=== PATIENT | female | born 1940 | race Hispanic/Latino ===

== ENCOUNTER 2017-12-02 18:17 | Observation (INO) | payer MEDICARE, OTHER ==
[~2017-12-02] VITALS: Ht 152.4 cm; Wt 78.7 kg
[2017-12-02 19:19] LABS: HEMATOCRIT 28.3 % (36-48); MEAN CORPUSCULAR HEMOGLOBIN 41.3 pg (27.0-33.0); MEAN CORPUSCULAR HGB CONC 35.6 g/dL (32.0-36.0); MEAN CORPUSCULAR VOLUME 116.3 fL (79-99); NUCLEATED RED BLOOD CELLS 0.2 % (0.0-0.19); PLATELET COUNT (AUTO) 177 K/uL (130-400); RED BLOOD CELL COUNT(AUTO) 2.43 MIL/uL (4.00-5.50); RED CELL DISTRIBUTION WIDTH 17.4 % (11.0-15.5); WHITE BLOOD COUNT (AUTO) 2.7 K/uL (4.8-10.8)
[2017-12-02 19:30] LABS: CREATININE 2.4 mg/dL (0.5-1.5); POTASSIUM 4.9 mmol/L (3.5-5.1)
[2017-12-02 19:44] LABS: ALBUMIN 2.7 g/dL (3.5-5.0); BILIRUBIN,TOTAL 0.8 mg/dL (0.2-1.0); CREATINE KINASE MB 0.7 ng/mL (0.5-3.6); TOTAL PROTEIN, SERUM 6.3 g/dL (6.0-8.3)
[2017-12-02 20:07] LABS: BILIRUBIN,URINE Negative (NEGATIVE); COLOR,URINE Dark Yellow (YELLOW); GLUCOSE, URINE (UA) Negative (NEGATIVE); KETONES,URINE Trace mg/dL (NEGATIVE); LEUKOCYTE ESTERASE ,URINE Small (NEGATIVE); NITRATE,URINE Negative (NEGATIVE); OCCULT BLOOD,URINE Negative (NEGATIVE); PROTEIN,URINE Negative (NEGATIVE); UROBILINOGEN,URINE 0.2 mg/dL (0.2-1.0)
[2017-12-02 20:11] LABS: APPEARANCE,URINE SLIGHTLY CLOUDY (CLEAR)
[2017-12-02 20:21] LABS: RBC,URINE 0-1 /HPF (0-1)
[2017-12-02 20:22] LABS: BACTERIA,URINE Moderate /HPF (None Seen); SQUAMOUS EPITHELIAL CELL,UR Moderate /LPF (0-2)
[2017-12-02 20:49] LABS: EOSINOPHILS % (MANUAL) 6 % (1-6); LYMPHOCYTES % (MANUAL) 29 % (22-44); MAN.DIFF COMMENT-IMPRESSION MANUAL DIFFERENTIAL; MONOCYTES % (MANUAL) 6 % (2-9); REACTIVE LYMPHOCYTES 2 % (0-0); SEGMENTED NEUTROPHILS % 57 % (40-70)
[2017-12-02 20:50] LABS: PLATELET MORPHOLOGY COMMENT LARGE PLTS
[2017-12-02 20:57] LABS: INR 1.18 (0.85-1.15); PARTIAL THROMBOPLASTIN TIME 32.5 SEC (26.3-35.5); PROTHROMBIN TIME 12.4 SEC (9.6-11.6)
[2017-12-03] MEDS ORDERED: POTASSIUM CHLORIDE 20MEQ/100ML 100 ML IV PRN
[2017-12-03] MEDS ORDERED: ONDANSETRON HCL 4 MG/2 ML VIAL IV PRN
[2017-12-03] MEDS ORDERED: LIDOCAINE HCL-MPF 1% 2ML VIAL IVP PRN
[2017-12-03] MEDS ORDERED: POTASSIUM CHLORIDE 10% ELIXIR 20 MEQ/15 ML UDCUP PO PRN
[2017-12-03] MEDS ORDERED: HYDRALAZINE HCL 20 MG/ML VIAL IV PRN
[2017-12-03] MEDS ORDERED: MORPHINE SULFATE 2 MG/ML 1ML SYG IV PRN
[2017-12-03] MEDS ORDERED: POTASSIUM CHLORIDE 20 MEQ ERTAB PO PRN
[2017-12-03] MEDS ORDERED: ZOSYN 3.375GM+NS 50ML 50 ML IV ONE ×2 (00:10→07:54)
[2017-12-03 05:02] LABS: CREATININE 2.3 mg/dL (0.5-1.5)
[2017-12-03 06:01] LABS: HEMATOCRIT 26.8 % (36-48); MEAN CORPUSCULAR HGB CONC 35.4 g/dL (32.0-36.0); MEAN CORPUSCULAR VOLUME 115.8 fL (79-99); PLATELET COUNT (AUTO) 158 K/uL (130-400); RED BLOOD CELL COUNT(AUTO) 2.31 MIL/uL (4.00-5.50); RED CELL DISTRIBUTION WIDTH 17.4 % (11.0-15.5); WHITE BLOOD COUNT (AUTO) 2.3 K/uL (4.8-10.8)
[2017-12-03] MEDS ORDERED: FUROSEMIDE 10 MG/ML 2ML VIAL ONE (07:54)
[2017-12-03] MEDS ORDERED: PANTOPRAZOLE SODIUM 40 MG TABLET.DR PO SCH (09:00)
[2017-12-03 15:14] LABS: APPEARANCE BODY FLUID CLEAR (CLEAR); BODY FLUID WBC 62 /cu. mm.; COLOR,BODY FLUID LT YELLOW (LT YELLOW); TOTAL VOLUME,BODY FLUID 1000 mL
[2017-12-03 15:15] LABS: BODY FLUID RBC 40 /cu. mm.
[2017-12-03 15:17] LABS: SPECIMENTYPE,BODY FLUID ASCITES
[2017-12-03 15:19] LABS: BF LYMPHOCYTE 79 %; BF MONOCYTE 21 %
[2017-12-03 16:38] VITALS: BP 172/57
[2017-12-03] MEDS ORDERED: FURO40TA5 PO (18:52)
[2017-12-03] MEDS ORDERED: HUM10VIA6 SQ ×2 (18:52)
[2017-12-03] MEDS ORDERED: UBID100C45 PO (18:52)
[2017-12-03] MEDS ORDERED: CITA10TA7 PO (18:52)
[2017-12-03] MEDS ORDERED: FOLI1TAB15 PO (18:52)
[2017-12-03] MEDS ORDERED: AZAT50TA PO (18:52)
[2017-12-03] MEDS ORDERED: PANT40TA25 PO (18:52)
[2017-12-03] MEDS ORDERED: ASPI-1197 PO (18:52)
[2017-12-03] MEDS ORDERED: ATOR40TA71 PO (18:52)
[2017-12-03] MEDS ORDERED: METR500T PO (18:52)
[2017-12-03] MEDS ORDERED: SENN-31 PO (18:52)
[2017-12-03] MEDS ORDERED: ALEN70TA47 PO (18:52)
[2017-12-03] MEDS ORDERED: CHOL100044 PO (18:52)
[2017-12-03] MEDS ORDERED: LOSA100T29 PO (18:52)
[2017-12-03] MEDS ORDERED: AMLO10TA2 PO (18:52)
[2017-12-03] MEDS ORDERED: CLOP75TA32 PO (18:52)
[2017-12-03] MEDS ORDERED: MV-M1TAB46 PO (18:52)
[2017-12-03] MEDS ORDERED: CHOL200012 PO (18:52)
[2017-12-03] MEDS ORDERED: CEFU250T87 PO (18:52)
[2017-12-03 20:41] VITALS: BP 159/56
[2017-12-03] MEDS: ZOSYN 3.375GM+NS 50ML 50 ML IV SCH (21:29)
[2017-12-03] MEDS: FUROSEMIDE 10 MG/ML 2ML VIAL IV SCH (21:29)
[2017-12-04 00:28] VITALS: BP 153/48
[2017-12-04 04:25] LABS: BASOPHILS % (AUTO) 0.3 % (0.0-5.0); EOSINOPHILS % (AUTO) 6.2 % (0.0-8.0); HEMATOCRIT 28.1 % (36-48); LYMPHOCYTES % (AUTO) 27.5 % (21.0-51.0); MEAN CORPUSCULAR HEMOGLOBIN 41.4 pg (27.0-33.0); MEAN CORPUSCULAR HGB CONC 35.8 g/dL (32.0-36.0); MEAN CORPUSCULAR VOLUME 115.7 fL (79-99); MONOCYTES % (AUTO) 11.4 % (3.0-13.0); NEUTROPHILS % (AUTO) 54.6 % (40.0-77.0); NUCLEATED RED BLOOD CELLS 0.4 % (0.0-0.19); PLATELET COUNT (AUTO) 145 K/uL (130-400); RED BLOOD CELL COUNT(AUTO) 2.42 MIL/uL (4.00-5.50); RED CELL DISTRIBUTION WIDTH 17.3 % (11.0-15.5); WHITE BLOOD COUNT (AUTO) 2.2 K/uL (4.8-10.8)
[2017-12-04 04:31] LABS: CREATININE 2.2 mg/dL (0.5-1.5)
[2017-12-04 04:39] VITALS: BP 162/72
[2017-12-04 04:44] VITALS: BP 137/48
[2017-12-04] MEDS: ZOSYN 3.375GM+NS 50ML 50 ML IV SCH ×2 (06:37→13:16)
[2017-12-04 07:00] VITALS: BP 159/50
[2017-12-04] MEDS: FUROSEMIDE 10 MG/ML 2ML VIAL IV SCH (09:21)
[2017-12-04 11:00] VITALS: BP 154/49
[2017-12-04] MEDS ORDERED: METRONIDAZOLE 500 MG TABLET PO SCH (14:00)
[2017-12-04] MEDS ORDERED: AZATHIOPRINE 50 MG TAB PO SCH (21:00)
[2017-12-05] MEDS ORDERED: CALCIUM PO SCH (09:00)
[2017-12-05] MEDS ORDERED: FOLIC ACID PO SCH (09:00)
[2017-12-05] MEDS ORDERED: CLOPIDOGREL BISULFATE 75 MG TAB PO SCH (09:00)
[2017-12-05] MEDS ORDERED: INSULIN HUMULIN 70/30 100 UNIT/ML 3ML SQ SCH (09:00)
[2017-12-05] MEDS ORDERED: MV MN PO SCH (09:00)
[2017-12-05] MEDS ORDERED: LOSARTAN 100 MG TABLET PO SCH (09:00)
[2017-12-05] MEDS ORDERED: VIT K PO SCH (09:00)
[2017-12-05] MEDS ORDERED: CITALOPRAM 20 MG TABLET PO SCH (09:00)
[2017-12-05] MEDS ORDERED: **HM** VIT D3 1000 UNITS PO SCH (09:00)
[2017-12-05] MEDS ORDERED: AMLODIPINE BESYLATE 5 MG TAB PO SCH (09:00)
[2017-12-05] MEDS ORDERED: FOLIC ACID 1 MG TABLET PO SCH (09:00)
[2017-12-05] MEDS ORDERED: SENNOSIDES PO SCH (09:00)
[2017-12-05] MEDS ORDERED: CHOLECALCIFEROL 1000 UNIT PO SCH (09:00)
[2017-12-05] MEDS ORDERED: UBIDECARENONE 100 MG PO SCH (09:00)
[2017-12-05] MEDS ORDERED: DOCUSATE SODIUM PO SCH (09:00)
[2017-12-05] MEDS ORDERED: ASPIRIN 81MG TAB.CHEW PO SCH (09:00)
[2017-12-05] MEDS ORDERED: ATORVASTATIN CALCIUM 40 MG TABLET PO SCH (09:00)
[2017-12-05] MEDS ORDERED: FUROSEMIDE 40 MG TABLET PO SCH (09:00)
[2017-12-05 14:22] LABS: HEPATITIS Bs ANTIGEN SCREEN P Negative (Negative)
[2017-12-11] MEDS ORDERED: ALENDRONATE SODIUM 35 MG TAB PO SCH (09:00)
== END 2017-12-04 18:20 | disposition home or self-care (01) ==
LOC: EDH 18:17 → EDHIP 23:15 → 3DH 12-03 16:05
PROVIDERS: ADMIT Internal Medicine; ATTEND Internal Medicine
DX: R10.9 Unspecified abdominal pain (principal); K52.9 Noninfective gastroenteritis and colitis, unspecified; K74.60 Unspecified cirrhosis of liver; I12.9 Hypertensive chronic kidney disease with stage 1 through stage 4 chronic kidney disease, or unspecified chronic kidney disease; N18.9 Chronic kidney disease, unspecified; E11.22 Type 2 diabetes mellitus with diabetic chronic kidney disease; I25.10 Atherosclerotic heart disease of native coronary artery without angina pectoris; E78.5 Hyperlipidemia, unspecified; E87.1 Hypo-osmolality and hyponatremia; N39.0 Urinary tract infection, site not specified; Z95.1 Presence of aortocoronary bypass graft
CPT/HCPCS: 36415 ×3; 49083; 71045; 74176; 76705; 80048 ×2; 80053; 81001; 82140; 82150; 82550; 82553; 82948; 83690; 84484; 85025 ×2; 85027; 85610; 85730; 86704; 86706; 86708; 87071; 87205; 87340; 87520; 88313; 89051; 93005; 96365; 96366; 96375; 96376; 99285; G0378 ×43; J1940 ×3; J2543 ×6; J7500

== ENCOUNTER 2017-12-18 12:51 | Inpatient (IN) | payer MEDICARE ==
[~2017-12-18] VITALS: Ht 149.9 cm; Wt 89.6 kg
[~2017-12-18 12:51] MED LIST: ALEN70TA47 PO; AMLO10TA2 PO; ASPI-1197 PO; ATOR40TA71 PO; AZAT50TA PO; CEFU250T87 PO; CHOL100044 PO; CHOL200012 PO; CITA10TA7 PO; CLOP75TA32 PO; FOLI1TAB15 PO; FURO40TA5 PO; HUM10VIA6 SQ; LOSA100T29 PO; METR500T PO; MV-M1TAB46 PO; PANT40TA25 PO; SENN-31 PO; UBID100C45 PO
[2017-12-18] MEDS ORDERED: DIATR MEGLU/DIATRIZOATE SODIUM 30 ML BOTTLE PO ONE (13:25)
[2017-12-18 14:13] LABS: BASOPHILS % (AUTO) 0.3 % (0.0-5.0); EOSINOPHILS % (AUTO) 1.7 % (0.0-8.0); HEMATOCRIT 26.5 % (36-48); MEAN CORPUSCULAR HEMOGLOBIN 42.8 pg (27.0-33.0); MEAN CORPUSCULAR HGB CONC 36.5 g/dL (32.0-36.0); MONOCYTES % (AUTO) 8.4 % (3.0-13.0); NEUTROPHILS % (AUTO) 73.6 % (40.0-77.0); NUCLEATED RED BLOOD CELLS 0.1 % (0.0-0.19); PLATELET COUNT (AUTO) 103 K/uL (130-400); RED BLOOD CELL COUNT(AUTO) 2.26 MIL/uL (4.00-5.50); RED CELL DISTRIBUTION WIDTH 17.2 % (11.0-15.5); WHITE BLOOD COUNT (AUTO) 3.2 K/uL (4.8-10.8)
[2017-12-18 14:27] LABS: CREATININE 1.4 mg/dL (0.5-1.5); POTASSIUM 4.3 mmol/L (3.5-5.1)
[2017-12-18 14:28] LABS: INR 1.18 (0.85-1.15); PARTIAL THROMBOPLASTIN TIME 30.3 SEC (26.3-35.5); PROTHROMBIN TIME 12.3 SEC (9.6-11.6)
[2017-12-18 14:32] LABS: BILIRUBIN,TOTAL 1.2 mg/dL (0.2-1.0); TOTAL PROTEIN, SERUM 6.7 g/dL (6.0-8.3)
[2017-12-18] MEDS ORDERED: IOPAMIDOL-370 75 ML VIAL IV ONE (15:29)
[2017-12-18 15:38] LABS: APPEARANCE,URINE Clear (CLEAR); BILIRUBIN,URINE Negative (NEGATIVE); COLOR,URINE Yellow (YELLOW); GLUCOSE, URINE (UA) Negative (NEGATIVE); KETONES,URINE Trace mg/dL (NEGATIVE); LEUKOCYTE ESTERASE ,URINE Negative (NEGATIVE); NITRATE,URINE Negative (NEGATIVE); OCCULT BLOOD,URINE Negative (NEGATIVE); PROTEIN,URINE Negative (NEGATIVE); UROBILINOGEN,URINE 0.2 mg/dL (0.2-1.0)
[2017-12-18] MEDS ORDERED: LACTULOSE 20 GM/30 ML UDCUP PO PRN (23:15)
[2017-12-18] MEDS ORDERED: VANCOMYCIN 500MG+NS 100ML 100 ML IV SCH (23:15)
[2017-12-18] MEDS ORDERED: METRONIDAZOLE 250MG/50ML 50 ML IV SCH (23:15)
[2017-12-18] MEDS ORDERED: ONDANSETRON HCL 4 MG/2 ML VIAL IV PRN (23:15)
[2017-12-18] MEDS ORDERED: ACETAMINOPHEN 325 MG TAB PO PRN (23:15)
[2017-12-18] MEDS ORDERED: HYDRALAZINE HCL 20 MG/ML VIAL ONE (23:45)
[2017-12-19] VITALS (14 sets, daily range): BP systolic 118–169; BP diastolic 41–84
[2017-12-19] MEDS ORDERED: VANCOMYCIN PROTOCOL PER PHARMACY IV SCH (01:15)
[2017-12-19] MEDS ORDERED: CLONIDINE HCL 0.2 MG TABLET PO ONE (01:45)
[2017-12-19] MEDS ORDERED: METRONIDAZOLE 500MG/100ML BAG 100 ML ONE (01:55)
[2017-12-19] MEDS ORDERED: VANCOMYCIN 1GM+NS 250ML 250 ML IV ONE (01:55)
[2017-12-19] MEDS ORDERED: SODIUM CHLORIDE 0.9% 250 ML IV ONE (01:57)
[2017-12-19] MEDS: MORPHINE SULFATE 2 MG/ML 1ML SYG IV PRN (02:51)
[2017-12-19] MEDS ORDERED: COMPOUND IV REFRIGERATED 1 EACH IVSOLN MISC PRN (06:30)
[2017-12-19] MEDS: INSULIN LISPRO 100 UNIT/ML 3ML SQ SCH ×4 (06:45→20:54)
[2017-12-19] MEDS ORDERED: COMPOUND IV MISC 1 EACH IVSOLN MISC PRN (09:00)
[2017-12-19] MEDS: PANTOPRAZOLE SODIUM 40 MG TABLET.DR PO SCH (10:19)
[2017-12-19] MEDS: METRONIDAZOLE 250MG/50ML 50 ML IV SCH ×2 (12:23→19:00)
[2017-12-19] MEDS: SODIUM CHLORIDE 0.9% 1000ML 1,000 ML IV SCH (17:01)
[2017-12-19] MEDS ORDERED: VANCOMYCIN 1.25 GM in SODIUM CHLORIDE 0.9% 250 ML IV SCH (21:00)
[2017-12-20 03:57] VITALS: BP 140/54
[2017-12-20] MEDS: METRONIDAZOLE 250MG/50ML 50 ML IV SCH ×3 (04:02→19:35)
[2017-12-20] MEDS: SODIUM CHLORIDE 0.9% 1000ML 1,000 ML IV SCH ×3 (04:20→21:13)
[2017-12-20] MEDS: INSULIN LISPRO 100 UNIT/ML 3ML SQ SCH ×4 (06:49→21:00)
[2017-12-20 07:00] VITALS: BP 165/49
[2017-12-20] MEDS: PANTOPRAZOLE SODIUM 40 MG TABLET.DR PO SCH (09:51)
[2017-12-20 10:17] LABS: BASOPHILS % (AUTO) 0.3 % (0.0-5.0); EOSINOPHILS % (AUTO) 5.5 % (0.0-8.0); HEMATOCRIT 24.6 % (36-48); LYMPHOCYTES % (AUTO) 20.6 % (21.0-51.0); MEAN CORPUSCULAR HEMOGLOBIN 42.5 pg (27.0-33.0); MEAN CORPUSCULAR HGB CONC 36.5 g/dL (32.0-36.0); MEAN CORPUSCULAR VOLUME 116.3 fL (79-99); MONOCYTES % (AUTO) 10.9 % (3.0-13.0); NEUTROPHILS % (AUTO) 62.7 % (40.0-77.0); NUCLEATED RED BLOOD CELLS 0.4 % (0.0-0.19); PLATELET COUNT (AUTO) 102 K/uL (130-400); RED BLOOD CELL COUNT(AUTO) 2.11 MIL/uL (4.00-5.50); RED CELL DISTRIBUTION WIDTH 17.9 % (11.0-15.5); WHITE BLOOD COUNT (AUTO) 2.5 K/uL (4.8-10.8)
[2017-12-20 10:22] LABS: CREATININE 2.1 mg/dL (0.5-1.5); POTASSIUM 3.9 mmol/L (3.5-5.1)
[2017-12-20 11:00] VITALS: BP 140/88
[2017-12-20] MEDS: MORPHINE SULFATE 2 MG/ML 1ML SYG IV PRN ×2 (13:17→21:14)
[2017-12-20 16:00] VITALS: BP 177/52
[2017-12-20 19:35] VITALS: BP 155/44
[2017-12-20] MEDS: GUAIFENESIN-DM 200/20 MG 10 ML PO PRN (21:13)
[2017-12-20 21:34] LABS: CREATININE,URINE RANDOM 123 mg/dL (30-135); SODIUM,URINE RANDOM 12 mmol/l (40-220)
[2017-12-20 23:25] VITALS: BP 171/52
[2017-12-20] MEDS: HYDRALAZINE HCL 20 MG/ML VIAL IV PRN (23:31)
[2017-12-21] VITALS (8 sets, daily range): BP systolic 120–176; BP diastolic 43–60
[2017-12-21] MEDS: GUAIFENESIN-DM 200/20 MG 10 ML PO PRN ×2 (02:50→20:42)
[2017-12-21] MEDS: METRONIDAZOLE 250MG/50ML 50 ML IV SCH ×2 (02:50→18:33)
[2017-12-21] MEDS ORDERED: CLONIDINE HCL 0.1 MG TABLET ONE (04:06)
[2017-12-21] MEDS: SODIUM CHLORIDE 0.9% 1000ML 1,000 ML IV SCH (05:48)
[2017-12-21 06:00] LABS: BASOPHILS % (AUTO) 0.3 % (0.0-5.0); HEMATOCRIT 22.2 % (36-48); LYMPHOCYTES % (AUTO) 19.3 % (21.0-51.0); MEAN CORPUSCULAR HEMOGLOBIN 40.7 pg (27.0-33.0); MEAN CORPUSCULAR HGB CONC 35.1 g/dL (32.0-36.0); MONOCYTES % (AUTO) 12.6 % (3.0-13.0); NEUTROPHILS % (AUTO) 63.8 % (40.0-77.0); NUCLEATED RED BLOOD CELLS 0.4 % (0.0-0.19); PLATELET COUNT (AUTO) 103 K/uL (130-400); RED BLOOD CELL COUNT(AUTO) 1.91 MIL/uL (4.00-5.50); WHITE BLOOD COUNT (AUTO) 2.2 K/uL (4.8-10.8)
[2017-12-21 06:10] LABS: CREATININE 2.2 mg/dL (0.5-1.5); POTASSIUM 3.9 mmol/L (3.5-5.1)
[2017-12-21 06:11] LABS: % IRON SATURATION 29.9 % (22-44)
[2017-12-21] MEDS: INSULIN LISPRO 100 UNIT/ML 3ML SQ SCH ×4 (07:30→20:34)
[2017-12-21] MEDS: PANTOPRAZOLE SODIUM 40 MG TABLET.DR PO SCH (08:25)
[2017-12-21] MEDS ORDERED: EPOETIN ALFA 10,000 UNIT/ML VIAL SQ SCH (12:15)
[2017-12-22] MEDS: SODIUM CHLORIDE 0.9% 1000ML 1,000 ML IV SCH (03:15)
[2017-12-22] MEDS: METRONIDAZOLE 250MG/50ML 50 ML IV SCH ×2 (03:15→11:01)
[2017-12-22 03:26] VITALS: BP 188/58
[2017-12-22] MEDS: CLONIDINE HCL 0.2 MG TABLET PO PRN (04:17)
[2017-12-22 05:52] LABS: HEMATOCRIT 23.6 % (36-48); MEAN CORPUSCULAR HEMOGLOBIN 42.4 pg (27.0-33.0); MEAN CORPUSCULAR HGB CONC 36.6 g/dL (32.0-36.0); NUCLEATED RED BLOOD CELLS 0.2 % (0.0-0.19); PLATELET COUNT (AUTO) 110 K/uL (130-400); RED BLOOD CELL COUNT(AUTO) 2.03 MIL/uL (4.00-5.50); RED CELL DISTRIBUTION WIDTH 17.9 % (11.0-15.5); WHITE BLOOD COUNT (AUTO) 2.2 K/uL (4.8-10.8)
[2017-12-22 06:00] LABS: CREATININE 1.9 mg/dL (0.5-1.5); PHOSPHORUS 4.1 mg/dL (2.5-4.9); POTASSIUM 3.7 mmol/L (3.5-5.1)
[2017-12-22] MEDS: INSULIN LISPRO 100 UNIT/ML 3ML SQ SCH ×4 (06:45→21:00)
[2017-12-22 07:00] LABS: EOSINOPHILS % (MANUAL) 7 % (1-6); LYMPHOCYTES % (MANUAL) 14 % (22-44); MAN.DIFF COMMENT-IMPRESSION MANUAL DIFFERENTIAL; MONOCYTES % (MANUAL) 8 % (2-9); SEGMENTED NEUTROPHILS % 71 % (40-70)
[2017-12-22 07:01] LABS: PLATELET MORPHOLOGY COMMENT SLIGHTLY DECREASED
[2017-12-22] MEDS: HYDRALAZINE HCL 20 MG/ML VIAL IV PRN (08:31)
[2017-12-22] MEDS: PANTOPRAZOLE SODIUM 40 MG TABLET.DR PO SCH (08:32)
[2017-12-22 09:07] VITALS: BP 202/67
[2017-12-22] MEDS ORDERED: AMLODIPINE BESYLATE 5 MG TAB PO SCH (09:15)
[2017-12-22 10:00] VITALS: BP 170/60
[2017-12-22 11:00] VITALS: BP 165/70
[2017-12-22] MEDS: MORPHINE SULFATE 2 MG/ML 1ML SYG IV PRN (12:48)
[2017-12-22] MEDS: IPRATROPIUM/ALBUTEROL SULFATE 3 ML SOLUTION IH SCH ×3 (12:54→18:50)
[2017-12-22] MEDS: METRONIDAZOLE 500MG/100ML BAG 100 ML IV SCH ×2 (14:00→21:12)
[2017-12-22 16:00] VITALS: BP 160/60
[2017-12-22 20:00] VITALS: BP 138/76
[2017-12-22] MEDS: METOPROLOL TARTRATE 50 MG TAB PO SCH (21:10)
[2017-12-23] VITALS: BP 180/55
[2017-12-23] MEDS: IPRATROPIUM/ALBUTEROL SULFATE 3 ML SOLUTION IH SCH ×5 (00:04→23:53)
[2017-12-23 04:00] VITALS: BP 202/56
[2017-12-23] MEDS: HYDRALAZINE HCL 20 MG/ML VIAL IV PRN ×2 (04:12→22:27)
[2017-12-23] MEDS: CLONIDINE HCL 0.2 MG TABLET PO PRN (05:24)
[2017-12-23] MEDS: METRONIDAZOLE 500MG/100ML BAG 100 ML IV SCH ×3 (05:24→22:27)
[2017-12-23 05:53] LABS: BASOPHILS % (AUTO) 0.3 % (0.0-5.0); EOSINOPHILS % (AUTO) 3.9 % (0.0-8.0); HEMATOCRIT 26.2 % (36-48); LYMPHOCYTES % (AUTO) 17.1 % (21.0-51.0); MEAN CORPUSCULAR HGB CONC 38.4 g/dL (32.0-36.0); MEAN CORPUSCULAR VOLUME 114.8 fL (79-99); MONOCYTES % (AUTO) 14.3 % (3.0-13.0); NEUTROPHILS % (AUTO) 64.4 % (40.0-77.0); NUCLEATED RED BLOOD CELLS 0.2 % (0.0-0.19); PLATELET COUNT (AUTO) 139 K/uL (130-400); RED BLOOD CELL COUNT(AUTO) 2.29 MIL/uL (4.00-5.50); RED CELL DISTRIBUTION WIDTH 18.4 % (11.0-15.5); WHITE BLOOD COUNT (AUTO) 3.6 K/uL (4.8-10.8)
[2017-12-23] MEDS: INSULIN LISPRO 100 UNIT/ML 3ML SQ SCH ×4 (06:10→21:00)
[2017-12-23 06:15] LABS: CREATININE 1.6 mg/dL (0.5-1.5); MAGNESIUM 2.1 mg/dL (1.80-2.40); POTASSIUM 3.9 mmol/L (3.5-5.1)
[2017-12-23 06:17] LABS: B-TYPE NATRIURETIC PEPTIDE 582 pg/mL (0-100)
[2017-12-23 07:00] VITALS: BP 158/60
[2017-12-23] MEDS: PANTOPRAZOLE SODIUM 40 MG TABLET.DR PO SCH (09:00)
[2017-12-23] MEDS: METOPROLOL TARTRATE 50 MG TAB PO SCH ×2 (09:00→22:27)
[2017-12-23] MEDS ORDERED: AMLODIPINE BESYLATE 5 MG TAB PO SCH (09:00)
[2017-12-23 12:00] VITALS: BP 150/60
[2017-12-23] MEDS: AMLODIPINE BESYLATE 5 MG TAB PO SCH (12:08)
[2017-12-23 16:00] VITALS: BP 150/60
[2017-12-23] MEDS: FUROSEMIDE 10 MG/ML 2ML VIAL IV SCH (18:57)
[2017-12-23 20:00] VITALS: BP 180/60
[2017-12-23] MEDS: GUAIFENESIN-DM 200/20 MG 10 ML PO PRN (22:27)
[2017-12-24] VITALS (7 sets, daily range): BP systolic 136–201; BP diastolic 50–64
[2017-12-24 04:08] LABS: BASOPHILS % (AUTO) 0.3 % (0.0-5.0); EOSINOPHILS % (AUTO) 3.9 % (0.0-8.0); HEMATOCRIT 26.2 % (36-48); LYMPHOCYTES % (AUTO) 18.5 % (21.0-51.0); MEAN CORPUSCULAR HEMOGLOBIN 42.5 pg (27.0-33.0); MEAN CORPUSCULAR HGB CONC 36.8 g/dL (32.0-36.0); MEAN CORPUSCULAR VOLUME 115.5 fL (79-99); MONOCYTES % (AUTO) 16.2 % (3.0-13.0); NEUTROPHILS % (AUTO) 61.1 % (40.0-77.0); PLATELET COUNT (AUTO) 140 K/uL (130-400); RED BLOOD CELL COUNT(AUTO) 2.27 MIL/uL (4.00-5.50); RED CELL DISTRIBUTION WIDTH 18.7 % (11.0-15.5); WHITE BLOOD COUNT (AUTO) 3.3 K/uL (4.8-10.8)
[2017-12-24 04:25] LABS: CREATININE 1.6 mg/dL (0.5-1.5); POTASSIUM 3.7 mmol/L (3.5-5.1)
[2017-12-24] MEDS: HYDRALAZINE HCL 20 MG/ML VIAL IV PRN (04:47)
[2017-12-24] MEDS: GUAIFENESIN-DM 200/20 MG 10 ML PO PRN ×2 (05:01→21:58)
[2017-12-24] MEDS: METRONIDAZOLE 500MG/100ML BAG 100 ML IV SCH ×3 (05:37→21:58)
[2017-12-24] MEDS: INSULIN LISPRO 100 UNIT/ML 3ML SQ SCH ×4 (07:30→20:40)
[2017-12-24] MEDS: IPRATROPIUM/ALBUTEROL SULFATE 3 ML SOLUTION IH SCH ×2 (07:33→11:46)
[2017-12-24] MEDS: METOPROLOL TARTRATE 50 MG TAB PO SCH ×2 (08:35→20:38)
[2017-12-24] MEDS: AMLODIPINE BESYLATE 5 MG TAB PO SCH (08:36)
[2017-12-24] MEDS: PANTOPRAZOLE SODIUM 40 MG TABLET.DR PO SCH (08:55)
[2017-12-24] MEDS ORDERED: LISINOPRIL 20 MG TABLET PO SCH (12:15)
[2017-12-24] MEDS: FUROSEMIDE 10 MG/ML 2ML VIAL IV SCH ×3 (18:15→20:37)
[2017-12-24] MEDS: IPRATROPIUM/ALBUTEROL SULFATE 3 ML SOLUTION IH PRN (19:26)
[2017-12-24] MEDS: ATORVASTATIN CALCIUM 40 MG TABLET PO SCH (20:37)
[2017-12-25] MEDS: IPRATROPIUM/ALBUTEROL SULFATE 3 ML SOLUTION IH PRN ×5 (00:31→23:46)
[2017-12-25 03:00] VITALS: BP 142/56
[2017-12-25 05:23] LABS: ALBUMIN 2.6 g/dL (3.5-5.0); BILIRUBIN,TOTAL 0.9 mg/dL (0.2-1.0); CREATININE 1.6 mg/dL (0.5-1.5); POTASSIUM 3.7 mmol/L (3.5-5.1); TOTAL PROTEIN, SERUM 6.1 g/dL (6.0-8.3)
[2017-12-25] MEDS: METRONIDAZOLE 500MG/100ML BAG 100 ML IV SCH ×3 (05:56→22:05)
[2017-12-25] MEDS: INSULIN LISPRO 100 UNIT/ML 3ML SQ SCH ×3 (06:01→21:00)
[2017-12-25 08:01] VITALS: BP 173/62
[2017-12-25] MEDS: AMLODIPINE BESYLATE 5 MG TAB PO SCH (10:16)
[2017-12-25] MEDS: CLOPIDOGREL BISULFATE 75 MG TAB PO SCH (10:17)
[2017-12-25] MEDS: METOPROLOL TARTRATE 50 MG TAB PO SCH ×2 (10:17→20:19)
[2017-12-25] MEDS: PANTOPRAZOLE SODIUM 40 MG TABLET.DR PO SCH (10:17)
[2017-12-25] MEDS: ASPIRIN 81MG TAB.CHEW PO SCH (10:17)
[2017-12-25] MEDS: LISINOPRIL 20 MG TABLET PO SCH (10:17)
[2017-12-25 11:18] VITALS: BP 138/88
[2017-12-25 15:56] VITALS: BP 132/82
[2017-12-25] MEDS: FUROSEMIDE 10 MG/ML 2ML VIAL IV SCH (18:15)
[2017-12-25 19:00] VITALS: BP 183/63
[2017-12-25] MEDS: ATORVASTATIN CALCIUM 40 MG TABLET PO SCH (20:19)
[2017-12-25 23:00] VITALS: BP 182/69
[2017-12-25] MEDS: HYDRALAZINE HCL 20 MG/ML VIAL IV PRN (23:11)
[2017-12-26 03:00] VITALS: BP 171/49
[2017-12-26 04:49] LABS: BASOPHILS % (AUTO) 0.4 % (0.0-5.0); EOSINOPHILS % (AUTO) 4.5 % (0.0-8.0); HEMATOCRIT 24.6 % (36-48); LYMPHOCYTES % (AUTO) 18.7 % (21.0-51.0); MEAN CORPUSCULAR HEMOGLOBIN 41.6 pg (27.0-33.0); MEAN CORPUSCULAR HGB CONC 35.9 g/dL (32.0-36.0); MEAN CORPUSCULAR VOLUME 115.9 fL (79-99); MONOCYTES % (AUTO) 20.9 % (3.0-13.0); NEUTROPHILS % (AUTO) 55.5 % (40.0-77.0); PLATELET COUNT (AUTO) 128 K/uL (130-400); RED BLOOD CELL COUNT(AUTO) 2.12 MIL/uL (4.00-5.50); RED CELL DISTRIBUTION WIDTH 18.6 % (11.0-15.5); WHITE BLOOD COUNT (AUTO) 3.4 K/uL (4.8-10.8)
[2017-12-26] MEDS: HYDRALAZINE HCL 20 MG/ML VIAL IV PRN (05:03)
[2017-12-26 05:06] LABS: ALBUMIN 2.3 g/dL (3.5-5.0); BILIRUBIN,TOTAL 0.6 mg/dL (0.2-1.0); CREATININE 1.9 mg/dL (0.5-1.5); POTASSIUM 3.9 mmol/L (3.5-5.1); TOTAL PROTEIN, SERUM 5.5 g/dL (6.0-8.3)
[2017-12-26] MEDS: METRONIDAZOLE 500MG/100ML BAG 100 ML IV SCH ×3 (05:52→22:35)
[2017-12-26] MEDS: INSULIN LISPRO 100 UNIT/ML 3ML SQ SCH ×4 (05:52→21:00)
[2017-12-26] MEDS: IPRATROPIUM/ALBUTEROL SULFATE 3 ML SOLUTION IH PRN ×3 (06:33→22:38)
[2017-12-26 07:00] VITALS: BP 164/44
[2017-12-26] MEDS ORDERED: FUROSEMIDE 40 MG TABLET PO SCH (09:00)
[2017-12-26] MEDS: LISINOPRIL 20 MG TABLET PO SCH (10:03)
[2017-12-26] MEDS: ASPIRIN 81MG TAB.CHEW PO SCH (10:03)
[2017-12-26] MEDS: AMLODIPINE BESYLATE 5 MG TAB PO SCH (10:04)
[2017-12-26] MEDS: METOPROLOL TARTRATE 50 MG TAB PO SCH ×2 (10:04→20:16)
[2017-12-26] MEDS: PANTOPRAZOLE SODIUM 40 MG TABLET.DR PO SCH (10:04)
[2017-12-26] MEDS: CLOPIDOGREL BISULFATE 75 MG TAB PO SCH (10:04)
[2017-12-26 11:00] VITALS: BP 166/67
[2017-12-26] MEDS ORDERED: INSULIN LISPRO 100 UNIT/ML 3ML SQ ONE (13:23)
[2017-12-26 16:00] VITALS: BP 112/44
[2017-12-26] MEDS: FUROSEMIDE 10 MG/ML 2ML VIAL IV SCH (17:24)
[2017-12-26 20:07] VITALS: BP 176/56
[2017-12-26] MEDS: ATORVASTATIN CALCIUM 40 MG TABLET PO SCH (20:16)
[2017-12-27] VITALS (9 sets, daily range): BP systolic 152–186; BP diastolic 43–64
[2017-12-27] MEDS: HYDRALAZINE HCL 20 MG/ML VIAL IV PRN (03:31)
[2017-12-27 05:05] LABS: HEMATOCRIT 25.2 % (36-48); MEAN CORPUSCULAR HEMOGLOBIN 40.6 pg (27.0-33.0); MEAN CORPUSCULAR HGB CONC 35.6 g/dL (32.0-36.0); PLATELET COUNT (AUTO) 156 K/uL (130-400); RED BLOOD CELL COUNT(AUTO) 2.21 MIL/uL (4.00-5.50); WHITE BLOOD COUNT (AUTO) 3.5 K/uL (4.8-10.8)
[2017-12-27 05:26] LABS: ALBUMIN 2.4 g/dL (3.5-5.0); BILIRUBIN,TOTAL 0.7 mg/dL (0.2-1.0); CREATININE 2.1 mg/dL (0.5-1.5); POTASSIUM 3.9 mmol/L (3.5-5.1); TOTAL PROTEIN, SERUM 5.7 g/dL (6.0-8.3)
[2017-12-27] MEDS: METRONIDAZOLE 500MG/100ML BAG 100 ML IV SCH ×2 (05:26→20:39)
[2017-12-27] MEDS: INSULIN LISPRO 100 UNIT/ML 3ML SQ SCH ×2 (06:31→20:39)
[2017-12-27 15:19] LABS: APPEARANCE,URINE CLOUDY (CLEAR); BILIRUBIN,URINE NEGATIVE (NEGATIVE); COLOR,URINE YELLOW (YELLOW); GLUCOSE, URINE (UA) NEGATIVE (NEGATIVE); KETONES,URINE NEGATIVE (NEGATIVE); LEUKOCYTE ESTERASE ,URINE MODERATE (NEGATIVE); NITRATE,URINE NEGATIVE (NEGATIVE); OCCULT BLOOD,URINE NEGATIVE (NEGATIVE); PH,URINE 5.5 (5.0-8.0); PROTEIN,URINE NEGATIVE (NEGATIVE); UROBILINOGEN,URINE 0.2 mg/dL (0.2-1.0)
[2017-12-27 15:44] LABS: BACTERIA,URINE Few /HPF (None Seen); RBC,URINE 0-1 /HPF (0-1); SQUAMOUS EPITHELIAL CELL,UR Moderate /LPF (0-2)
[2017-12-27 15:46] LABS: TRANSITIONAL EPI CELLS,URINE Rare /LPF (None Seen); YEAST,URINE BUDDING Rare /HPF (None Seen)
[2017-12-27] MEDS: FUROSEMIDE 10 MG/ML 2ML VIAL IV SCH (18:15)
[2017-12-27] MEDS: ATORVASTATIN CALCIUM 40 MG TABLET PO SCH (20:38)
[2017-12-27] MEDS: FUROSEMIDE 10 MG/ML 4ML VIAL IV SCH (20:38)
[2017-12-27] MEDS: METOPROLOL TARTRATE 50 MG TAB PO SCH (20:38)
[2017-12-28] MEDS: HYDRALAZINE HCL 20 MG/ML VIAL IV PRN (00:02)
[2017-12-28 03:50] VITALS: BP 158/54
[2017-12-28] MEDS: GUAIFENESIN-DM 200/20 MG 10 ML PO PRN ×2 (03:58→23:33)
[2017-12-28] MEDS: IPRATROPIUM/ALBUTEROL SULFATE 3 ML SOLUTION IH PRN ×3 (04:25→23:57)
[2017-12-28] MEDS: METRONIDAZOLE 500MG/100ML BAG 100 ML IV SCH ×3 (04:48→21:27)
[2017-12-28 05:48] LABS: HEMATOCRIT 24.1 % (36-48); MEAN CORPUSCULAR HEMOGLOBIN 41.3 pg (27.0-33.0); MEAN CORPUSCULAR VOLUME 114.8 fL (79-99); NUCLEATED RED BLOOD CELLS 0.1 % (0.0-0.19); PLATELET COUNT (AUTO) 132 K/uL (130-400); RED CELL DISTRIBUTION WIDTH 18.6 % (11.0-15.5); WHITE BLOOD COUNT (AUTO) 3.1 K/uL (4.8-10.8)
[2017-12-28 05:59] LABS: CREATININE 2.3 mg/dL (0.5-1.5); POTASSIUM 3.7 mmol/L (3.5-5.1)
[2017-12-28 06:03] LABS: EOSINOPHILS % (MANUAL) 2 % (1-6); LYMPHOCYTES % (MANUAL) 22 % (22-44); MAN.DIFF COMMENT-IMPRESSION MANUAL DIFFERENTIAL; MONOCYTES % (MANUAL) 14 % (2-9); SEGMENTED NEUTROPHILS % 62 % (40-70)
[2017-12-28 06:04] LABS: PLATELET MORPHOLOGY COMMENT SLIGHTLY DECREASED
[2017-12-28] MEDS: INSULIN LISPRO 100 UNIT/ML 3ML SQ SCH ×4 (06:12→20:51)
[2017-12-28 07:00] VITALS: BP 171/55
[2017-12-28] MEDS: AMLODIPINE BESYLATE 5 MG TAB PO SCH ×2 (09:00→09:58)
[2017-12-28] MEDS: PANTOPRAZOLE SODIUM 40 MG TABLET.DR PO SCH ×2 (09:00→09:58)
[2017-12-28] MEDS: ASPIRIN 81MG TAB.CHEW PO SCH ×2 (09:00→09:58)
[2017-12-28] MEDS: CLOPIDOGREL BISULFATE 75 MG TAB PO SCH ×2 (09:00→09:57)
[2017-12-28] MEDS: LISINOPRIL 20 MG TABLET PO SCH ×2 (09:00→09:56)
[2017-12-28] MEDS: FUROSEMIDE 10 MG/ML 4ML VIAL IV SCH ×2 (09:57→20:51)
[2017-12-28] MEDS: METOPROLOL TARTRATE 50 MG TAB PO SCH ×2 (09:58→20:51)
[2017-12-28 11:00] VITALS: BP 132/55
[2017-12-28 16:04] VITALS: BP 152/58
[2017-12-28 20:05] VITALS: BP 176/54
[2017-12-28] MEDS: ATORVASTATIN CALCIUM 40 MG TABLET PO SCH (20:51)
[2017-12-28] MEDS: ALBUMIN (HUMAN) 25% 50 ML IV SCH (20:51)
[2017-12-28 23:15] VITALS: BP 143/51
[2017-12-29] VITALS (7 sets, daily range): BP systolic 136–182; BP diastolic 49–65
[2017-12-29] MEDS: HYDRALAZINE HCL 20 MG/ML VIAL IV PRN ×2 (03:20→17:47)
[2017-12-29] MEDS: GUAIFENESIN-DM 200/20 MG 10 ML PO PRN ×2 (03:23→15:23)
[2017-12-29] MEDS: METRONIDAZOLE 500MG/100ML BAG 100 ML IV SCH ×3 (05:31→21:49)
[2017-12-29 06:28] LABS: HEMATOCRIT 25.5 % (36-48); MEAN CORPUSCULAR HEMOGLOBIN 40.6 pg (27.0-33.0); MEAN CORPUSCULAR HGB CONC 35.4 g/dL (32.0-36.0); MEAN CORPUSCULAR VOLUME 114.5 fL (79-99); PLATELET COUNT (AUTO) 129 K/uL (130-400); RED BLOOD CELL COUNT(AUTO) 2.22 MIL/uL (4.00-5.50); RED CELL DISTRIBUTION WIDTH 18.1 % (11.0-15.5); WHITE BLOOD COUNT (AUTO) 3.1 K/uL (4.8-10.8)
[2017-12-29 06:35] LABS: CREATININE 2.3 mg/dL (0.5-1.5); POTASSIUM 3.8 mmol/L (3.5-5.1)
[2017-12-29] MEDS: INSULIN LISPRO 100 UNIT/ML 3ML SQ SCH ×4 (06:38→20:49)
[2017-12-29] MEDS ORDERED: LACTULOSE 20 GM/30 ML UDCUP PO PRN (08:30)
[2017-12-29] MEDS: ALBUMIN (HUMAN) 25% 50 ML IV SCH ×2 (09:59→20:25)
[2017-12-29] MEDS: CLOPIDOGREL BISULFATE 75 MG TAB PO SCH (10:00)
[2017-12-29] MEDS: PANTOPRAZOLE SODIUM 40 MG TABLET.DR PO SCH (10:00)
[2017-12-29] MEDS: FUROSEMIDE 10 MG/ML 4ML VIAL IV SCH ×2 (10:00→20:25)
[2017-12-29] MEDS: AMLODIPINE BESYLATE 5 MG TAB PO SCH (10:00)
[2017-12-29] MEDS: LISINOPRIL 20 MG TABLET PO SCH (10:01)
[2017-12-29] MEDS: METOPROLOL TARTRATE 50 MG TAB PO SCH ×2 (10:01→20:25)
[2017-12-29] MEDS: ASPIRIN 81MG TAB.CHEW PO SCH (10:01)
[2017-12-29] MEDS ORDERED: MINOXIDIL 2.5 MG TAB PO ONE (13:20)
[2017-12-29] MEDS: ATORVASTATIN CALCIUM 40 MG TABLET PO SCH (20:25)
[2017-12-29] MEDS: IPRATROPIUM/ALBUTEROL SULFATE 3 ML SOLUTION IH PRN (22:18)
[2017-12-30 03:20] VITALS: BP 166/57
[2017-12-30] MEDS: HYDRALAZINE HCL 20 MG/ML VIAL IV PRN (05:12)
[2017-12-30] MEDS: METRONIDAZOLE 500MG/100ML BAG 100 ML IV SCH ×3 (05:13→21:14)
[2017-12-30] MEDS: INSULIN LISPRO 100 UNIT/ML 3ML SQ SCH ×4 (06:28→21:27)
[2017-12-30 08:00] VITALS: BP 184/60
[2017-12-30] MEDS: IPRATROPIUM/ALBUTEROL SULFATE 3 ML SOLUTION IH PRN ×2 (09:17→20:08)
[2017-12-30] MEDS: ALBUMIN (HUMAN) 25% 50 ML IV SCH ×2 (11:37→21:14)
[2017-12-30] MEDS: FUROSEMIDE 10 MG/ML 4ML VIAL IV SCH ×2 (11:38→21:14)
[2017-12-30] MEDS: CLOPIDOGREL BISULFATE 75 MG TAB PO SCH (11:38)
[2017-12-30] MEDS: AMLODIPINE BESYLATE 5 MG TAB PO SCH (11:39)
[2017-12-30] MEDS: ASPIRIN 81MG TAB.CHEW PO SCH (11:39)
[2017-12-30] MEDS: METOPROLOL TARTRATE 50 MG TAB PO SCH ×2 (11:39→21:13)
[2017-12-30] MEDS: LISINOPRIL 20 MG TABLET PO SCH (11:40)
[2017-12-30] MEDS: PANTOPRAZOLE SODIUM 40 MG TABLET.DR PO SCH (11:40)
[2017-12-30] MEDS: MINOXIDIL 2.5 MG TAB PO SCH (11:40)
[2017-12-30 11:45] VITALS: BP 141/51
[2017-12-30 16:00] VITALS: BP 156/58
[2017-12-30 20:00] VITALS: BP 168/56
[2017-12-30] MEDS: ATORVASTATIN CALCIUM 40 MG TABLET PO SCH (21:13)
[2017-12-30 23:49] VITALS: BP 153/49
[2017-12-31 03:59] VITALS: BP 150/53
[2017-12-31 04:23] LABS: BASOPHILS % (AUTO) 0.3 % (0.0-5.0); HEMATOCRIT 25.7 % (36-48); LYMPHOCYTES % (AUTO) 24.5 % (21.0-51.0); MEAN CORPUSCULAR HEMOGLOBIN 40.4 pg (27.0-33.0); MEAN CORPUSCULAR HGB CONC 35.5 g/dL (32.0-36.0); MEAN CORPUSCULAR VOLUME 113.6 fL (79-99); MONOCYTES % (AUTO) 29.3 % (3.0-13.0); NEUTROPHILS % (AUTO) 40.9 % (40.0-77.0); NUCLEATED RED BLOOD CELLS 0.2 % (0.0-0.19); PLATELET COUNT (AUTO) 134 K/uL (130-400); RED BLOOD CELL COUNT(AUTO) 2.26 MIL/uL (4.00-5.50); RED CELL DISTRIBUTION WIDTH 18.4 % (11.0-15.5); WHITE BLOOD COUNT (AUTO) 2.8 K/uL (4.8-10.8)
[2017-12-31 04:47] LABS: CREATININE 2.3 mg/dL (0.5-1.5); POTASSIUM 3.6 mmol/L (3.5-5.1)
[2017-12-31 04:50] LABS: BAND NEUTROPHILS % (MANUAL) 1 % (0-2); EOSINOPHILS % (MANUAL) 10 % (1-6); LYMPHOCYTES % (MANUAL) 22 % (22-44); MAN.DIFF COMMENT-IMPRESSION MANUAL DIFFERENTIAL; MONOCYTES % (MANUAL) 19 % (2-9); SEGMENTED NEUTROPHILS % 48 % (40-70)
[2017-12-31 04:51] LABS: PLATELET MORPHOLOGY COMMENT ADEQUATE
[2017-12-31] MEDS: METRONIDAZOLE 500MG/100ML BAG 100 ML IV SCH (05:22)
[2017-12-31] MEDS: GUAIFENESIN-DM 200/20 MG 10 ML PO PRN (05:22)
[2017-12-31] MEDS: INSULIN LISPRO 100 UNIT/ML 3ML SQ SCH ×2 (06:18→12:48)
[2017-12-31 08:00] VITALS: BP 162/70
[2017-12-31] MEDS: FUROSEMIDE 10 MG/ML 4ML VIAL IV SCH (09:05)
[2017-12-31] MEDS: PANTOPRAZOLE SODIUM 40 MG TABLET.DR PO SCH (09:09)
[2017-12-31] MEDS: CLOPIDOGREL BISULFATE 75 MG TAB PO SCH (09:11)
[2017-12-31] MEDS: ASPIRIN 81MG TAB.CHEW PO SCH (09:11)
[2017-12-31] MEDS: MINOXIDIL 2.5 MG TAB PO SCH (09:11)
[2017-12-31] MEDS: METOPROLOL TARTRATE 50 MG TAB PO SCH (09:11)
[2017-12-31] MEDS: AMLODIPINE BESYLATE 5 MG TAB PO SCH (09:11)
[2017-12-31] MEDS: LISINOPRIL 20 MG TABLET PO SCH (09:12)
[2017-12-31 12:00] VITALS: BP 145/45
[2017-12-31] MEDS ORDERED: MINO2.5 PO (12:56)
[2017-12-31] MEDS ORDERED: METO50 PO (12:56)
[2017-12-31] MEDS ORDERED: LISI-613 PO (12:56)
[2017-12-31] MEDS ORDERED: FURO40TA7 PO (12:56)
[2017-12-31 16:00] VITALS: BP 156/61
== END 2017-12-31 18:40 | disposition home or self-care (01) | DRG 371 ==
LOC: EDH 12:51 → EDHIP 21:15 → 3DH 23:58
PROVIDERS: ADMIT Family Medicine; ATTEND Family Medicine
DX: A04.72 Enterocolitis due to Clostridium difficile, not specified as recurrent (principal); I50.33 Acute on chronic diastolic (congestive) heart failure; N17.9 Acute kidney failure, unspecified; D61.818 Other pancytopenia; M31.30 Wegener's granulomatosis without renal involvement; R18.8 Other ascites; E11.21 Type 2 diabetes mellitus with diabetic nephropathy; I13.0 Hypertensive heart and chronic kidney disease with heart failure and stage 1 through stage 4 chronic kidney disease, or unspecified chronic kidney disease; K74.60 Unspecified cirrhosis of liver; E86.9 Volume depletion, unspecified; I08.3 Combined rheumatic disorders of mitral, aortic and tricuspid valves; E11.22 Type 2 diabetes mellitus with diabetic chronic kidney disease; N14.1 Nephropathy induced by other drugs, medicaments and biological substances; N18.9 Chronic kidney disease, unspecified; I12.9 Hypertensive chronic kidney disease with stage 1 through stage 4 chronic kidney disease, or unspecified chronic kidney disease; Z95.1 Presence of aortocoronary bypass graft; E78.5 Hyperlipidemia, unspecified; I25.10 Atherosclerotic heart disease of native coronary artery without angina pectoris; E11.51 Type 2 diabetes mellitus with diabetic peripheral angiopathy without gangrene; E66.9 Obesity, unspecified; I65.22 Occlusion and stenosis of left carotid artery; M81.0 Age-related osteoporosis without current pathological fracture; T50.8X5A Adverse effect of diagnostic agents, initial encounter; Z79.02 Long term (current) use of antithrombotics/antiplatelets; Z79.4 Long term (current) use of insulin; Z79.82 Long term (current) use of aspirin; Z79.83 Long term (current) use of bisphosphonates; Z79.899 Other long term (current) drug therapy; Z86.19 Personal history of other infectious and parasitic diseases; Z88.2 Allergy status to sulfonamides; Z83.3 Family history of diabetes mellitus; Z82.49 Family history of ischemic heart disease and other diseases of the circulatory system
CPT/HCPCS: 36415; 71045; 74178; 76705; 80048; 80053; 81001; 81003; 82270; 82570; 82728; 82948; 83540; 83550; 83735; 83880; 84100; 84300; 84484; 85007; 85025; 85027; 85610; 85730; 87046; 87177; 87205; 87324; 88313; 93005; 93306; 94640; 94664; 97039; A4344; J0360; J0885; J1815; J1940; J2405; J3370; J3490; J7030; P9047; Q9963; Q9967